=== PATIENT | female | born 1955 | race Caucasian/White ===

== ENCOUNTER 2017-02-07 20:59 | Emergency (ER) | payer OTHER ==
[~2017-02-07] VITALS: Ht 167.6 cm; Wt 76.8 kg
[~2017-02-07 20:59] MED LIST: Z.0.NO CURRENT MEDS
[2017-02-07 21:16] VITALS: BP 139/90; PULSE 64; RESP 16; TEMP 99; O2SAT 96
[2017-02-07] MEDS ORDERED: DILT90TA PO (21:24)
[2017-02-07] MEDS ORDERED: BISO10TA2 PO (21:24)
[2017-02-07] MEDS: ACETAMINOPHEN/HYDROcodone 325 MG/5 MG TAB PO ONE ×2 (21:30→21:36)
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
== END 2017-02-07 22:41 | disposition home or self-care (01) ==
LOC: PHEFT 20:59
DX: S63.501A Unspecified sprain of right wrist, initial encounter (principal); V00.181A Fall from other rolling-type pedestrian conveyance, initial encounter
CPT/HCPCS: 73110; 99283; L3908